=== PATIENT | female | born 1975 | race Caucasian/White ===

== ENCOUNTER → 2017-02-27 | Outpatient (CLI) | payer OTHER, SELFPAY | PROVIDERS: Visit Provider Nurse Practitioner Family | DX: Z79.899 Other long term (current) drug therapy (principal) | CPT/HCPCS: 80305 ==

== ENCOUNTER → 2017-08-15 13:45 | Outpatient (CLI) | payer OTHER, SELFPAY ==
[2017-08-15 19:40] LABS: Amphetamine/Metha Screen,Urine Negative ng/mL (<1000); Barbiturates Screen,Urine Negative ng/mL (<200); Benzodiazepines Screen,Urine Negative ng/mL (200); Cannabinoid Screen,Urine Positive ng/mL (<50); Cocaine Screen,Urine Positive ng/g (<300); Methadone Screen,Urine Negative ng/mL (<300); Opiate Screen,Urine Negative ng/mL (<300); Phencyclidine Screen,Urine Negative ng/mL (<25)
== END ==
PROVIDERS: Visit Provider Nurse Practitioner Family
DX: Z79.899 Other long term (current) drug therapy (principal)
CPT/HCPCS: 80305

== ENCOUNTER → 2019-03-22 16:58 | Outpatient (CLI) | payer OTHER, SELFPAY ==
[2019-03-22 17:10] LABS: Basophils % 0.4 % (0.1-2.0); Eosinophils # 0.1 K/mm3 (0.0-0.4); Eosinophils % 1.8 % (0.1-12.0); Hemoglobin 13.8 g/dL (12.2-16.2); Lymphocytes # 2.4 K/mm3 (0.7-4.5); Lymphocytes % 35.9 % (10-50); Mean Corpuscular HGB Conc 32.8 g/dL (31.8-35.4); Mean Corpuscular Volume 94.6 fl (81-99); Mean Platelet Volume 9.5 fl (7.4-10.4); Monocytes # 0.3 K/mm3 (0.1-1.0); Monocytes % 4.9 % (1.7-9.3); Neutrophils # 3.8 K/mm3 (1.8-7.8); Neutrophils % 56.9 % (37.0-80.0); Platelet Count 324 K/mm3 (142-424); Red Blood Count 4.44 M/mm3 (4.20-5.40); Red Cell Distribution Width 12.4 % (11.5-17.5); White Blood Count 6.6 K/mm3 (4.8-10.8)
[2019-03-22 19:41] LABS: Alanine Aminotransferase 58 U/L (12-78); Alkaline Phosphatase 70 U/L (46-116); Anion Gap 13.9 mEq/L (5-15); Aspartate Amino Transferase 36 U/L (15-37); Bilirubin,Total 0.3 mg/dL (0.2-1.0); Blood Urea Nitrogen 7 mg/dL (7-18); Calcium 9.3 mg/dL (8.5-10.1); Carbon Dioxide 28 mmol/L (21.0-32.0); Chloride 102 mmol/L (98-107); Chol/HDL Ratio 2.8 (1-3.5); Cholesterol 189 mg/dL (140-200); Creatinine,Serum 0.76 mg/dL (0.55-1.02); Estimated Glomerular Filt Rate 83 ml/min (>60); Free T4 (Free Thyroxine) 1.19 ng/dl (0.76-1.46); GFR (African American) 101 ML/MIN (>60); Globulin 4.1 gm/dl (1.3-3.2); Glucose 97 mg/dL (74-106); HDL Cholesterol 67 mg/dL (29-89); LDL Cholesterol 107 mg/dL (0-130); Potassium 4.9 mmoL/L (3.5-5.1); Sodium 139 mmol/L (136-145); Thyroid Stimulating Hormone 1.21 uIU/ml (0.358-3.740); Total Protein,Serum 8.1 gm/dL (6.4-8.2); Triglycerides 77 mg/dL (30-200); VLDL Cholesterol 15 mg/dL (0-40)
[2019-03-25 12:50] LABS: Hep A Ab, IgM N; Hepatitis B Core Antibody IgM N; Hepatitis B Surface Antigen N; Hepatitis C Antibody >11.0
== END ==
PROVIDERS: Visit Provider Emergency Medicine
DX: R53.83 Other fatigue (principal); G62.9 Polyneuropathy, unspecified; E66.3 Overweight; Z72.0 Tobacco use
CPT/HCPCS: 80053; 80061; 80074; 84439; 84443; 85025

== ENCOUNTER → 2020-04-14 13:47 | Outpatient (CLI) | payer OTHER, SELFPAY ==
[2020-04-14 14:09] LABS: Basophils % 0.6 % (0.1-2.0); Eosinophils # 0.2 K/mm3 (0.0-0.4); Eosinophils % 2.8 % (0.1-12.0); Hematocrit 46.1 % (37.0-47.0); Hemoglobin 14.5 g/dL (12.2-16.2); Lymphocytes # 2.3 K/mm3 (0.7-4.5); Lymphocytes % 32.3 % (10-50); Mean Corpuscular HGB Conc 31.5 g/dL (31.8-35.4); Mean Corpuscular Hemoglobin 30.3 pg (27.0-31.2); Mean Corpuscular Volume 96.3 fl (81-99); Monocytes # 0.4 K/mm3 (0.1-1.0); Neutrophils # 4.2 K/mm3 (1.8-7.8); Neutrophils % 58.4 % (37.0-80.0); Platelet Count 389 K/mm3 (142-424); Red Blood Count 4.79 M/mm3 (4.20-5.40); Red Cell Distribution Width 12.3 % (11.5-17.5); White Blood Count 7.2 K/mm3 (4.8-10.8)
[2020-04-14 14:16] LABS: Alanine Aminotransferase 77 U/L (12-78); Albumin Level 4.6 g/dl (3.5-5.0); Albumin/Globulin Ratio 1.2 (1.1-1.8); Alkaline Phosphatase 92 U/L (38-126); Anion Gap 11.2 mEq/L (5-15); Aspartate Amino Transferase 62 U/L (14-36); Bilirubin,Total 0.4 mg/dl (0.2-1.3); Blood Urea Nitrogen 8 mg/dl (7-17); Calcium 9.9 mg/dl (8.4-10.2); Carbon Dioxide 30 mmol/L (22.0-30.0); Chloride 104 mmol/L (98-107); Cholesterol 236 mg/dl (140-200); Estimated Glomerular Filt Rate 91 ml/min (>60); GFR (African American) 110 ML/MIN (>60); Glucose 112 mg/dl (74-100); HDL Cholesterol 78 mg/dl (40-60); Potassium 4.2 mmoL/L (3.5-5.1); Sodium 141 mmol/L (136-145); Total Protein,Serum 8.6 g/dl (6.3-8.2); Triglycerides 75 mg/dl (30-150); VLDL Cholesterol 15 mg/dL (0-40)
== END ==
PROVIDERS: Visit Provider Family Medicine
DX: G62.9 Polyneuropathy, unspecified (principal); K21.9 Gastro-esophageal reflux disease without esophagitis; E66.9 Obesity, unspecified; Z68.30 Body mass index [BMI] 30.0-30.9, adult; Z72.0 Tobacco use; Z20.5 Contact with and (suspected) exposure to viral hepatitis; Z80.3 Family history of malignant neoplasm of breast
CPT/HCPCS: 80053; 80061; 85025

== ENCOUNTER → 2020-12-25 18:58 | Outpatient (CLI) | payer OTHER, SELFPAY ==
[2020-12-25 20:12] LABS: Basophils # 0.1 K/mm3 (0-0.2); Basophils % 0.4 % (0.1-2.0); Eosinophils # 0.3 K/mm3 (0.0-0.4); Eosinophils % 2.2 % (0.1-12.0); Hematocrit 44.2 % (37.0-47.0); Hemoglobin 13.8 g/dL (12.2-16.2); Lymphocytes # 3.8 K/mm3 (0.7-4.5); Lymphocytes % 33.7 % (10-50); Mean Corpuscular HGB Conc 31.1 g/dL (31.8-35.4); Mean Corpuscular Hemoglobin 31.1 pg (27.0-31.2); Mean Corpuscular Volume 99.8 fl (81-99); Mean Platelet Volume 9.9 fl (7.4-10.4); Monocytes # 0.5 K/mm3 (0.1-1.0); Neutrophils # 6.8 K/mm3 (1.8-7.8); Neutrophils % 59.7 % (37.0-80.0); Platelet Count 457 K/mm3 (142-424); Red Blood Count 4.43 M/mm3 (4.20-5.40); Red Cell Distribution Width 12.8 % (11.5-17.5); White Blood Count 11.3 K/mm3 (4.8-10.8)
[2020-12-25 20:31] LABS: Alanine Aminotransferase 64 U/L (12-78); Alkaline Phosphatase 94 U/L (38-126); Anion Gap 11.7 mEq/L (5-15); Aspartate Amino Transferase 55 U/L (14-36); Bilirubin,Total 0.2 mg/dl (0.2-1.3); Blood Urea Nitrogen 8 mg/dl (7-17); Calcium 9.2 mg/dl (8.4-10.2); Carbon Dioxide 29 mmol/L (22.0-30.0); Chloride 103 mmol/L (98-107); Cholesterol 206 mg/dl (140-200); Estimated Glomerular Filt Rate 134 ml/min (>60); GFR (African American) 162 ML/MIN (>60); Globulin 3.9 g/dL (1.3-3.2); Glucose 89 mg/dl (74-100); HDL Cholesterol 69 mg/dl (40-60); Potassium 4.7 mmoL/L (3.5-5.1); Sodium 139 mmol/L (136-145); Total Protein,Serum 7.9 g/dl (6.3-8.2); Triglycerides 105 mg/dl (30-150); VLDL Cholesterol 21 mg/dL (0-40)
[2020-12-25 20:35] LABS: Amphetamine/Metha Screen,Urine Negative ng/ml (<1000)
[2020-12-25 20:36] LABS: Barbiturates Screen,Urine Negative ng/ml (<200); Benzodiazepines Screen,Urine Negative ng/ml (<200)
[2020-12-25 20:37] LABS: Cannabinoid Screen,Urine Negative ng/ml (<50); Cocaine Screen,Urine Negative ng/ml (<300)
[2020-12-25 20:38] LABS: Methadone Screen,Urine Negative ng/ml (<300)
[2020-12-25 20:39] LABS: Opiate Screen,Urine Negative ng/ml (<300); Phencyclidine Screen,Urine Negative ng/ml (<25)
[2020-12-25 20:42] LABS: Direct LDL Cholesterol 104.91 mg/dL (100-129)
[2020-12-25 20:47] LABS: Free T4 (Free Thyroxine) 1.25 ng/dl (0.78-2.19)
[2020-12-25 21:02] LABS: Thyroid Stimulating Hormone 2.06 uIU/mL (0.465-4.68)
[2020-12-25 22:23] LABS: 25-OH Vitamin D, Total 23.1 ng/mL (30-100)
== END ==
PROVIDERS: Visit Provider Emergency Medicine
DX: E66.9 Obesity, unspecified (principal); E55.9 Vitamin D deficiency, unspecified; Z79.899 Other long term (current) drug therapy
CPT/HCPCS: 80053; 80061; 80305; 82306; 84439; 84443; 85025

== ENCOUNTER → 2021-06-25 08:41 | Outpatient (CLI) | payer OTHER, SELFPAY ==
[2021-06-25 15:09] LABS: Amphetamine/Metha Screen,Urine Negative ng/ml (<1000)
[2021-06-25 15:10] LABS: Barbiturates Screen,Urine Negative ng/ml (<200); Benzodiazepines Screen,Urine Negative ng/ml (<200)
[2021-06-25 15:11] LABS: Cannabinoid Screen,Urine Negative ng/ml (<50)
[2021-06-25 15:12] LABS: Cocaine Screen,Urine Negative ng/ml (<300); Methadone Screen,Urine Negative ng/ml (<300)
[2021-06-25 15:14] LABS: Opiate Screen,Urine Negative ng/ml (<300); Phencyclidine Screen,Urine Negative ng/ml (<25)
== END ==
PROVIDERS: Visit Provider Emergency Medicine
DX: G89.29 Other chronic pain (principal)
CPT/HCPCS: 80305

== ENCOUNTER → 2021-12-25 16:06 | Outpatient (CLI) | payer OTHER, SELFPAY ==
--- NOTE | 2021-12-25 16:07 | MM_ITS ---
PROCEDURE INFORMATION: Exam: Bilateral Screening 3D Mammography Exam date and time: 12/25/2021 4:02 PM Age: 46 years old Clinical indication: Baseline. No family history of breast cancer. TECHNIQUE: Imaging protocol: Bilateral Screening tomosynthesis and 2D mammography including computer-aided detection (CAD) when performed. COMPARISON: No relevant prior studies available. FINDINGS: MAMMOGRAPHY: Breast composition: There are scattered areas of fibroglandular density. Mass: None. Architectural distortion: None. Calcifications: No suspicious calcifications. Asymmetric density: None. Skin thickening: None. Axillary adenopathy: None. IMPRESSION: No mammographic evidence of malignancy. Annual screening is recommended unless otherwise clinically indicated. ASSESSMENT: BI-RADS Category 1: Negative
== END ==
PROVIDERS: PCP Emergency Medicine; Visit Provider Emergency Medicine
DX: Z12.31 Encounter for screening mammogram for malignant neoplasm of breast (principal)
CPT/HCPCS: 77063; 77067

== ENCOUNTER → 2022-02-13 16:45 | Outpatient (CLI) | payer OTHER, SELFPAY ==
[2022-02-13 17:56] LABS: Adenovirus,PCR Not Detected (NotDetected); Bordetella Pertussis Not Detected (NotDetected); Chlamydophila Pneumoniae, PCR Not Detected (NotDetected); Coronavirus 19, PCR Not Detected (NotDetected); Coronavirus 229E Not Detected (NotDetected); Coronavirus NL63 Not Detected (NotDetected); Coronavirus OC43 Not Detected (NotDetected); Coronovirus HKU1,PCR Not Detected (NotDetected); Human Metapneumovirus Not Detected (NotDetected); Influenza A, PCR Not Detected (NotDetected); Influenza AH1, 2009 Not Detected (NotDetected); Influenza AH1, PCR Not Detected (NotDetected); Influenza AH3,PCR Not Detected (NotDetected); Influenza B, PCR Not Detected (NotDetected); Mycoplasma Pneumoniae, PCR Not Detected (NotDetected); Parainfluenza 1, PCR Not Detected (NotDetected); Parainfluenza 2, PCR Not Detected (NotDetected); Parainfluenza 3, PCR Not Detected (NotDetected); Parainfluenza 4, PCR Not Detected (NotDetected); Respiratory Syncytial Virus Not Detected (NotDetected); Rhinovirus/Enterovirus Not Detected (NotDetected)
== END ==
PROVIDERS: PCP Nurse Practitioner Family; Visit Provider Nurse Practitioner Family
DX: J02.9 Acute pharyngitis, unspecified (principal); R05.9 Cough, unspecified; R51.9 Headache, unspecified; R19.7 Diarrhea, unspecified
CPT/HCPCS: 87581; 87632; 87798; C9803; U0003; U0005

== ENCOUNTER → 2022-09-04 13:30 | Outpatient (CLI) | payer OTHER, SELFPAY ==
[2022-09-04 15:58] LABS: Basophils # 0.1 K/mm3 (0-0.2); Basophils % 0.6 % (0.1-2.0); Eosinophils # 0.1 K/mm3 (0.0-0.4); Eosinophils % 1.6 % (0.1-12.0); Hematocrit 45.4 % (37.0-47.0); Hemoglobin 14.2 g/dL (12.2-16.2); Lymphocytes # 3.4 K/mm3 (0.7-4.5); Lymphocytes % 41.7 % (10-50); Mean Corpuscular HGB Conc 31.2 g/dL (31.8-35.4); Mean Corpuscular Hemoglobin 29.5 pg (27.0-31.2); Mean Corpuscular Volume 94.5 fl (81-99); Mean Platelet Volume 10.1 fl (7.4-10.4); Monocytes # 0.6 K/mm3 (0.1-1.0); Monocytes % 7.1 % (1.7-9.3); Platelet Count 406 K/mm3 (142-424); Red Blood Count 4.81 M/mm3 (4.20-5.40); Red Cell Distribution Width 12.9 % (11.5-17.5); White Blood Count 8.2 K/mm3 (4.8-10.8)
[2022-09-04 16:17] LABS: Alanine Aminotransferase 77 U/L (12-78); Albumin Level 4.2 g/dl (3.5-5.0); Albumin/Globulin Ratio 1.1 (1.1-1.8); Alkaline Phosphatase 90 U/L (38-126); Anion Gap 15.1 mEq/L (5-15); Aspartate Amino Transferase 70 U/L (14-36); Bilirubin,Total 0.3 mg/dl (0.2-1.3); Blood Urea Nitrogen 7 mg/dl (7-17); Calcium 8.8 mg/dl (8.4-10.2); Carbon Dioxide 27 mmol/L (22.0-30.0); Chloride 103 mmol/L (98-107); Chol/HDL Ratio 3.1 (1-3.5); Cholesterol 194 mg/dl (140-200); Estimated Glomerular Filt Rate 108 ml/min (>60); GFR (African American) 130 ML/MIN (>60); Globulin 3.8 g/dL (1.3-3.2); Glucose 62 mg/dl (74-100); HDL Cholesterol 63 mg/dl (40-60); Potassium 5.1 mmoL/L (3.5-5.1); Sodium 140 mmol/L (136-145); Triglycerides 90 mg/dl (30-150); VLDL Cholesterol 18 mg/dL (0-40)
[2022-09-04 16:28] LABS: Direct LDL Cholesterol 98.51 mg/dL (100-129)
[2022-09-04 16:34] LABS: Free T4 (Free Thyroxine) 1.16 ng/dl (0.78-2.19)
[2022-09-04 16:37] LABS: 25-OH Vitamin D, Total 20.6 ng/mL (30-100)
[2022-09-04 16:48] LABS: Thyroid Stimulating Hormone 1.79 uIU/mL (0.465-4.68)
== END ==
PROVIDERS: PCP Emergency Medicine; Visit Provider Emergency Medicine
DX: E66.9 Obesity, unspecified (principal); E55.9 Vitamin D deficiency, unspecified; Z68.35 Body mass index [BMI] 35.0-35.9, adult
CPT/HCPCS: 80053; 80061; 82306; 84439; 84443; 85025

== ENCOUNTER → 2022-11-27 01:10 | Outpatient (CLI) | payer BC, SELFPAY ==
[2022-11-28 00:03] LABS: Amphetamine/Metha Screen,Urine Negative ng/ml (<1000)
[2022-11-28 00:04] LABS: Barbiturates Screen,Urine Negative ng/ml (<200)
[2022-11-28 00:05] LABS: Benzodiazepines Screen,Urine Negative ng/ml (<200); Cannabinoid Screen,Urine Negative ng/ml (<50)
[2022-11-28 00:08] LABS: Cocaine Screen,Urine Negative ng/ml (<300); Methadone Screen,Urine Negative ng/ml (<300); Opiate Screen,Urine Negative ng/ml (<300); Phencyclidine Screen,Urine Negative ng/ml (<25)
== END ==
PROVIDERS: PCP Emergency Medicine; Visit Provider Emergency Medicine
DX: Z79.899 Other long term (current) drug therapy (principal)
CPT/HCPCS: 80305

== ENCOUNTER → 2023-02-21 16:04 | Outpatient (CLI) | payer OTHER, SELFPAY ==
[2023-02-21 17:15] LABS: Barbiturates Screen,Urine Negative ng/ml (<200)
[2023-02-21 17:16] LABS: Amphetamine/Metha Screen,Urine Negative ng/ml (<1000)
[2023-02-21 17:18] LABS: Benzodiazepines Screen,Urine Negative ng/ml (<200); Cocaine Screen,Urine Negative ng/ml (<300)
[2023-02-21 17:20] LABS: Methadone Screen,Urine Negative ng/ml (<300); Phencyclidine Screen,Urine Negative ng/ml (<25)
[2023-02-21 17:21] LABS: Opiate Screen,Urine Negative ng/ml (<300)
[2023-02-21 17:28] LABS: Cannabinoid Screen,Urine Negative ng/ml (<50)
== END ==
PROVIDERS: PCP Nurse Practitioner Family; Visit Provider Nurse Practitioner Family
DX: G62.9 Polyneuropathy, unspecified (principal)
CPT/HCPCS: 80305

== ENCOUNTER 2023-03-21 19:03 | Outpatient (CLI) | payer OTHER, SELFPAY ==
[2023-03-21 21:24] LABS: Amphetamine/Metha Screen,Urine Negative ng/ml (<1000); Barbiturates Screen,Urine Negative ng/ml (<200)
[2023-03-21 21:25] LABS: Benzodiazepines Screen,Urine Negative ng/ml (<200); Cannabinoid Screen,Urine Negative ng/ml (<50)
[2023-03-21 21:26] LABS: Cocaine Screen,Urine Negative ng/ml (<300)
[2023-03-21 21:27] LABS: Methadone Screen,Urine Negative ng/ml (<300); Opiate Screen,Urine Negative ng/ml (<300)
[2023-03-21 21:28] LABS: Phencyclidine Screen,Urine Negative ng/ml (<25)
[2023-03-29 08:35] LABS: Gabapentin,Urine >800.0 ug/mL (.)
== END 2023-03-21 23:59 ==
PROVIDERS: PCP Nurse Practitioner Family; Visit Provider Nurse Practitioner Family
DX: G62.9 Polyneuropathy, unspecified (principal)
CPT/HCPCS: 80307

== ENCOUNTER 2023-03-24 08:27 | Outpatient (CLI) | payer BC, SELFPAY | END 2023-03-24 23:59 | LOC: LAB.DROPOF 03-26 08:28 | PROVIDERS: PCP Nurse Practitioner Family; Visit Provider Nurse Practitioner Family | DX: Z79.899 Other long term (current) drug therapy (principal); G62.9 Polyneuropathy, unspecified | CPT/HCPCS: 80307 ==

== ENCOUNTER 2023-12-06 10:58 | Emergency (ER) | payer BC, SELFPAY ==
[2023-12-06] VITALS (8 sets, daily range): BP systolic 136–180; BP diastolic 79–99; PULSE 67–90; RESP 13–18; TEMP 36.7–36.9; O2SAT 90–96; BMI 33.3
--- NOTE | 2023-12-06 11:08 | PC.NURSE ---
DR MURPHY AT BEDSIDE
--- NOTE | 2023-12-06 11:22 | ECG_ITS ---
APPROVED REPORT Exam: Resting ECG HR:73 bpm ECG Measurements Heart Rate 73 AXES [place] 136 P 41 QRSd 85 QRS 53 QT 361 T 33 QTc 387 Conclusion Sinus rhythm Electronically signed by : JJ MURPHY, 12/07/2023 19:30:35
[2023-12-06] MEDS: ACETAMINOPHEN 1,000MG/100ML VIAL 1000 MG IV (11:33)
[2023-12-06] MEDS: KETOROLAC 30MG/ML VIAL 15 MG IV (11:37)
--- NOTE | 2023-12-06 11:39 | ED_ITS ---
Discharge Plan Disposition Patient Disposition: Home, Self-Care Prescriptions Prescriptions: No Action buprenorphine-naloxone 8-2 mg tablet, sublingual 1 tab sublingual DAILY omeprazole 20 mg capsule,delayed release(DR/EC) 20 mg PO DAILY Qty: 90 3RF naproxen 500 mg tablet 500 mg PO BID Qty: 30 0RF gabapentin 800 mg tablet 800 mg PO TID Qty: 90 2RF ergocalciferol (vitamin D2) [Vitamin D2] 1,250 mcg (50,000 unit) capsule 1,250 mcg PO WEEKLY Qty: 5 2RF Referrals Follow up/Referrals: Agustin Middleton MD [Staff Physician] - See instructions Juventino Che APRN [Primary Care Provider] - See instructions Activity Restrictions/Add. Instructions Additional Instructions/Restrictions: Talk to your family doctor about the small adrenal nodules (right adrenal nodule 1.7 x 1.2 cm, left adrenal nodule 1.2 x 2.2 cm). Likely benign, but should have follow-up. Dr. Middleton (surgeon) will be the one that will help you with your gallbladder. Contact our office to schedule follow-up. Call your family doctor to establish care for this visit to the emergency department and schedule follow-up within 48 hours to ensure improvement. If you have any worsening of your condition or any other concerning signs or symptoms, return to the emergency department or your primary care doctor for further evaluation. Clinical Impressions Clinical Impression: Cholelithiasis without cholecystitis, Symptomatic cholelithiasis Instructions Patient Instructions: DI for Low Back Pain Print Language Print Language: Croatian Discharge ED Provider: Rustam Ortiz General Adult HPI General Chief complaint: Back Pain/Injury Stated complaint: stabbing back pain abd pain Time Seen by Provider: 12/06/23 11:05 Mode of Arrival: Wheelchair Source of Information: Patient Limitations: No Limitations Description of Symptoms (Recalled from ER Triage Doc. by RN): PT REPORTS UPPER BACK PAIN, MID BACK AND ON RIGHT SIDE. HAS BEEN ONGOING FOR 1 MONTH. NO INJURY. PAIN HAS INCREASED IN THE LAST WEEK. WORSE THIS AM AOUND 0200 History of Present Illness HPI narrative: Please note that above description of symptoms, in this electronic medical record under categorization of recalled from ER triage doctor by RN are reflective of an initial nursing assessment, however, is not reflective of my full history and physical exam that was personally taken and clarified. Consequentially, this preceding description of symptoms, which may include the patient's categorized chief complaint in the EMR, do not reflect my personal clinical impression, and the ultimate description of history of present illness and patient stated complaints should be deferred to this section of the note. Unless stated otherwise or congruent with this section of the note, additional signs, symptoms, or incongruence should be interpreted as inaccurate with my clinical impression. Related Data Home Medications ?Medication ?Instructions ?Recorded ?Confirmed buprenorphine 8 mg-naloxone 2 mg 1 tab sublingual DAILY 06/07/22 11/05/23 sublingual tablet Previous Rx's ?Medication ?Instructions ?Recorded ergocalciferol (vitamin D2) 1,250 1,250 mcg PO WEEKLY #5 caps 09/12/22 mcg (50,000 unit) capsule (Vitamin D2) naproxen 500 mg tablet 500 mg PO BID #30 tabs 03/21/23 omeprazole 20 mg capsule,delayed 20 mg PO DAILY #90 caps 05/14/23 release gabapentin 800 mg tablet 800 mg PO TID #90 tabs 11/05/23 Allergies Allergy/AdvReac Type Severity Reaction Status Date / Time No Known Allergies Allergy Verified 11/05/23 14:38 [facility] Disclaimer: The information contained in this section may have been updated after the patient was seen, as this information can be updated by other users. Surgical History H/O section Family History Other Cancer Diabetes Heart attack Hypertension Social History Smoking Status: Current every day smoker tobacco type: cigarettes packs per day: 2 alcohol intake: never substance use type: former substance user current occupational status: disabled Travel in the last 8 weeks: None household members: spouse, family and children housing: house ROS Obtained: Yes All systems reviewed & no additional complaints except as documented Physical Exam General General appearance: alert and in distress (Secondary to pain, tearful) Head Head exam: atraumatic and normocephalic Eye Eye exam: Present normal appearance, PERRL and EOMI Neck Neck exam: Present normal inspection, full ROM and trachea midline Respiratory Respiratory exam: Present normal lung sounds bilaterally; Absent respiratory distress, wheezes, stridor, accessory muscle use or prolonged expiratory phase Cardiovascular Cardiovascular exam: Present regular rate, normal rhythm and other (Pulses equal symmetric in upper and lower extremities) Abdominal Exam Abdominal exam: Present soft, tenderness, guarding and Tiwari's sign; Absent distention, rebound, rigidity, Rovsing's sign, tenderness at McBurney's Point or pulsatile mass Abdominal tenderness: Present RUQ and moderate Extremities Exam Extremities exam: Absent edema Neurological Exam Neurological exam: Present alert, oriented X3, CN II-XII intact and normal gait; Absent motor sensory deficit Skin Skin exam: Present warm and dry; Absent diaphoresis or erythema Medical Decision Making Medical Records Medical records reviewed: Yes I reviewed the patient's medical records. Screening: Per USPSTF and CDC recommendations, given the prevalence of disease in our region, it is our hospital?s policy to screen for HIV and viral Hepatitis for all patients aged 18 and over and those with ongoing risk factors. Tyson Inquiry Pt receiving controlled substance: No Tyson was queried for this patient: No Vital Signs: 12/06/23 10:59 12/06/23 11:05 12/06/23 11:52 Temperature 98.4 F Temperature Source Oral Pulse Rate 90 81 Pulse Rate [Radial] 89 Respiratory Rate 18 18 18 Blood Pressure 180/99 H 136/97 H Blood Pressure [Left Arm] 180/99 H Blood Pressure Mean 126 117 Blood Pressure Mean [Left Arm] 126 Blood Pressure Source [Left Arm] Automatic Cuff Blood Pressure Position [Left Arm] Sitting 02 Sat by Pulse Oximetry 95 95 96 Oxygen Delivery Method Room Air 12/06/23 12:00 12/06/23 12:30 12/06/23 13:00 Temperature Temperature Source Pulse Rate 78 69 69 Pulse Rate [Radial] Respiratory Rate 18 18 Blood Pressure 151/94 H 151/79 H 153/80 H Blood Pressure [Left Arm] Blood Pressure Mean 113 112 Blood Pressure Mean [Left Arm] Blood Pressure Source [Left Arm] Blood Pressure Position [Left Arm] 02 Sat by Pulse Oximetry 93 L 95 95 Oxygen Delivery Method Room Air 12/06/23 13:30 Temperature Temperature Source Pulse Rate 67 Pulse Rate [Radial] Respiratory Rate Blood Pressure 147/94 H Blood Pressure [Left Arm] Blood Pressure Mean Blood Pressure Mean [Left Arm] Blood Pressure Source [Left Arm] Blood Pressure Position [Left Arm] 02 Sat by Pulse Oximetry 90 L Oxygen Delivery Method Room Air Lab Data Lab Results 12/06/23 11:03: Urine Color Yellow, Urine Appearance Cloudy, Urine pH 6.5, Ur Specific [place] 1.025, Urine Protein Negative, Urine Glucose (UA) Negative, Urine Ketones Negative, Urine Blood 3+ A, Urine Nitrate Negative, Urine Bilirubin 1+ A, Urine Urobilinogen 1.0, Ur Leukocyte Esterase Negative, Urine RBC 20-50, Urine WBC 3-5, Ur Squamous Epith Cells 3-5, Urine Bacteria Trace 12/06/23 11:35: WBC 9.8, RBC 5.18, Hgb 16.6 H, Hct 53.7 H, MCV 103.7 H, MCH 32.1 H, MCHC 30.9 L, RDW 14.3, Plt Count 334, MPV 8.3, Neut % (Auto) 72.0, Lymph % (Auto) 20.6, [place] % (Auto) 5.1, Eos % (Auto) 1.8, Baso % (Auto) 0.5, Neut # (Auto) 7.1, Lymph # (Auto) 2.0, [place] # (Auto) 0.5, Eos # (Auto) 0.2, Baso # (Auto) 0.1, Sodium 139, Potassium 4.3, Chloride 106, Carbon Dioxide 33 H, Anion Gap 4.3 L, BUN 6 L, Creatinine 0.60, Estimated Creat Clear 166, Estimated GFR 107, Est GFR ( Amer) 130, Glucose 112 H, Calcium 9.9, Total Bilirubin 0.5, AST 77 H, ALT 82 H, Alkaline Phosphatase 97, Troponin I < 0.01, Total Protein 8.5 H, Albumin 4.2, Globulin 4.3 H, Albumin/Globulin Ratio 1.0 L, Lipase 108, HCG, Quant < 2, HIV 1&2 Antibody Rapid Nonreactive 12/06/23 11:35 12/06/23 11:35 Orders (Tests/Meds): ED MEDICATIONS Generic Name Dose Route Start Last Admin Trade Name Freq PRN Reason Stop Dose Admin Sodium Chloride 10 ml 12/06/23 12:37 12/06/23 12:38 Sodium Chloride 0.9% 10ml Syr (Rad Only) IV 01/05/24 12:36 10 ml NEEDED PRN Administration Maintain IV Site Discontinued Medications Generic Name Dose Route Start Last Admin Trade Name Freq PRN Reason Stop Dose Admin Acetaminophen 1,000 mg 12/06/23 11:15 12/06/23 11:33 Acetaminophen 1,000mg/100ml Vial IV 12/06/23 11:16 1,000 mg ONCE ONE Administration Iopamidol 75 ml 12/06/23 12:37 12/06/23 12:38 Iopamidol-370 (76%);100ml Bottle IV 12/06/23 12:38 75 ml ONCE ONE Administration Ketorolac Tromethamine 15 mg 12/06/23 11:15 12/06/23 11:37 Ketorolac 30mg/Ml Vial IV 12/06/23 11:16 15 mg ONCE ONE Administration ORDERS Category Date Time Status CT abdomen pelvis w con Stat Cat Scan 12/06/23 12:15 Completed POCUS Point of Care (ER Only) Stat Exams 12/06/23 11:12 Completed CBC w/Auto Diff [Complete Blood Count Auto Diff] Stat Lab 12/06/23 11:35 Completed CMP [Comprehensive Metabolic Panel] Stat Lab 12/06/23 11:35 Completed HCG,Quantitative Stat Lab 12/06/23 11:35 Completed HIV (1&2) Antibody Rapid Stat Lab 12/06/23 11:35 Completed Hep C Ab with Reflex to RNA Stat Lab 12/06/23 11:35 Received Lactic Acid Stat Lab 12/06/23 11:12 Ordered Lipase Stat Lab 12/06/23 11:35 Completed Trop I [Troponin I] Stat Lab 12/06/23 11:35 Completed Troponin I Q3H Lab 12/06/23 14:15 Ordered Troponin I Q3H Lab 12/06/23 17:15 Ordered UA [Urinalysis and Microscopic] Stat Lab 12/06/23 11:03 Completed Medical Decision Narrative: 48-year-old female history of IV drug abuse on Suboxone, section presenting with abdominal/back pain. Patient states that she has had 4 of these episodes on and off for the last month. This episode is constant, started this morning around 2 AM when she got up to urinate. Right upper quadrant, radiates to the right side of her back. Nausea without vomiting. Last bowel movement was yesterday, 12/04, normal for her without blood or mucus. No urinary symptoms including blood or burning. Nothing in particular makes it better, lying on her back makes it worse. It is sharp, stabbing. Not associated with food intake. History was obtained via conversation with family and patient. On arrival, patient hemodynamically stable, alert, oriented x4, appropriate, GCS 15, moving all extremities spontaneously, pupils equal and reactive to light. Full physical exam performed and significant for tearful appearing woman who appears to be in mild distress secondary to pain. No flank tenderness, no overlying skin changes on the back or flank. Abdomen is soft, moderately tender in right upper quadrant with positive Tiwari sign. No overlying abdominal changes. Bowel sounds present.. Differential includes PUD, gastritis, enteritis, gastroenteritis, pancreatitis, SBO, colitis, diverticulitis, nephrolithiasis, UTI, , cholecystitis, choledocholithiasis, appendicitis, hepatitis, torsion, aortic pathology, mesenteric ischemia among others. Patient placed on continuous cardiac monitoring and continuous pulse ox with initial blood pressure 180/90, heart rate 89, saturation 95% on room air. Independent interpretation of EKG shows sinus rhythm 73 beats a minute no ST or T wave changes concerning for acute ischemia. NM 136, QRS 85, QTc 387. Wandering baseline, but no obvious ischemic change. Normal axis. Patient was given Toradol and acetaminophen for symptomatic management and correction of underlying abnormalities. Workup independently interpreted and significant for nonactionable CBC or chemistry. Kidney function normal. Troponin negative. Mildly elevated LFTs. hCG negative, urinalysis unconcerning. On independent interpretation of imaging, no acute intra-abdominal abnormality on CT of the abdomen and pelvis. See radiology read for full review of final results. Bedside [id number] ultrasound was performed and patient has numerous gallstones, no acute cholecystitis. Given workup, physical exam, history and symptoms, this most likely represents symptomatic cholelithiasis without cholecystitis. Because patient at baseline without signs or symptoms of clinical decompensation, deemed appropriate for discharge. Results were relayed to patient who voiced understanding and were agreeable to outpatient management and follow up. I discussed my clinical impression with patient and answered all questions. At this time, the evidence for any other entities in the differential is insufficient to warrant any further testing or ED observation. This was explained as well. Advisory was given that persistent or worsening symptoms require further evaluation. I confirmed the understanding of this discussion. Shelving Supervisor disclaimer Much of this encounter note is an electronic enrollment management manager spoken language to printed text. Electronic enrollment management manager of the spoken language may permit errors. Although I have reviewed the note, some errors may still exist. Procedures Limited Ultrasound Indication:: Limited RUQ ultrasound Indication: Abdominal pain and right flank pain Identified structures: -Gallbladder -Gallbladder wall -Common bile duct -Liver Findings: Sonographic Tiwari sign: Absent Gallstones: Present Sludge: Absent Pericholecystic fluid: Absent Maximal GB wall thickness (mm) (normal is </= 3mm): Normal Common bile duct width (mm) (normal is </= 6mm): Normal Gallbladder width (cm) (normal is < 4cm): Normal Gallbladder length (cm) (normal is < 10cm): Normal Impression: Cholelithiasis without secondary findings of cholecystitis Images were saved to permanent archive The study was technically adequate CPT 45383-41 This study was performed by ne, and I personally interpreted all images/videos. Based on my clinical judgement, these images were adequate and did not necessitate further imaging. Views:: Ultrasound-guided line placement Indication: -Difficult access, history of IVDU Identified structures: -Right cephalic vein Location/access site: -Right cephalic Vessel patency: -Patent Direct visualization? -Yes Impression: 60 mm of 20-gauge catheter in right cephalic vein Images were saved to permanent archive The study was technically adequate CPT Codes: Venipuncture: 29705-55 Age <3 yo: 65528-01 Age >3yo: 05103-12 Central line <5 yo: 43731-22 Central line >5 yo: 40306-53 This study was performed by ne, and I personally interpreted all images/videos. Based on my clinical judgement, these images were adequate and did not necessitate further imaging Critical Care Critical Care Time Critical Care Time: No
[2023-12-06 11:52] LABS: Albumin Level 4.2 g/dl (3.5-5.0); Chloride 106 mmol/L (98-107); Potassium 4.3 mmoL/L (3.5-5.1); Sodium 139 mmol/L (136-145)
[2023-12-06 11:53] LABS: Basophils # 0.1 K/mm3 (0-0.2); Basophils % 0.5 % (0.1-2.0); Eosinophils # 0.2 K/mm3 (0.0-0.4); Eosinophils % 1.8 % (0.1-12.0); Hematocrit 53.7 % (37.0-47.0); Hemoglobin 16.6 g/dL (12.2-16.2); Lymphocytes % 20.6 % (10-50); Mean Corpuscular HGB Conc 30.9 g/dL (31.8-35.4); Mean Corpuscular Hemoglobin 32.1 pg (27.0-31.2); Mean Corpuscular Volume 103.7 fl (81-99); Mean Platelet Volume 8.3 fl (7.4-10.4); Monocytes # 0.5 K/mm3 (0.1-1.0); Monocytes % 5.1 % (1.7-9.3); Neutrophils # 7.1 K/mm3 (1.8-7.8); Platelet Count 334 K/mm3 (142-424); Red Blood Count 5.18 M/mm3 (4.20-5.40); Red Cell Distribution Width 14.3 % (11.5-17.5); White Blood Count 9.8 K/mm3 (4.8-10.8)
[2023-12-06 11:55] LABS: Alanine Aminotransferase 82 U/L (12-78); Alkaline Phosphatase 97 U/L (38-126); Anion Gap 4.3 mEq/L (5-15); Aspartate Amino Transferase 77 U/L (14-36); Bilirubin,Total 0.5 mg/dl (0.2-1.3); Blood Urea Nitrogen 6 mg/dl (7-17); Carbon Dioxide 33 mmol/L (22.0-30.0); Creatinine Clearance Estimated 166 mL/min (50-200); Estimated Glomerular Filt Rate 107 ml/min (>60); GFR (African American) 130 ML/MIN (>60); Globulin 4.3 g/dL (1.3-3.2); Lipase 108 U/L (23-300); Total Protein,Serum 8.5 g/dl (6.3-8.2)
[2023-12-06 11:56] LABS: Calcium 9.9 mg/dl (8.4-10.2); Glucose 112 mg/dl (74-100)
[2023-12-06 12:07] LABS: Troponin I < 0.01 ng/ml (0.00-0.034)
--- NOTE | 2023-12-06 12:15 | CT_ITS ---
PROCEDURE INFORMATION: Exam: CT Abdomen And Pelvis With Contrast Exam date and time: 12/06/2023 12:39 PM Age: 48 years old Clinical indication: Abdominal pain; Additional info: Ruq pain to back, stones without cholecystitis US TECHNIQUE: Imaging protocol: Computed tomography of the abdomen and pelvis with contrast. Radiation optimization: All CT scans at this facility use at least one of these dose optimization techniques: automated exposure control; mA and/or kV adjustment per patient size (includes targeted exams where dose is matched to clinical indication); or iterative reconstruction. Contrast material: ISOVUE; Contrast volume: 75 ml; Contrast route: IV; COMPARISON: No relevant prior studies available. FINDINGS: Lungs: Subsegmental atelectasis in the right lower lobe. Diaphragm: Small hiatal hernia. Liver: Fatty infiltration of the liver. Gallbladder and biliary ducts: Normal. No calcified stones. No ductal dilation. Pancreas: Normal. No ductal dilation. Spleen: Normal. No splenomegaly. Adrenal glands: Right adrenal nodule measures 1.7 x 1.2 cm in left adrenal nodule measures 1.2 x 2.2 cm. Further characterization not possible on current examination. Kidneys and ureters: Normal. No hydronephrosis. Stomach and bowel: Unremarkable. No obstruction. No mucosal thickening. Appendix: No evidence of appendicitis. Intraperitoneal space: Unremarkable. No free air. No significant fluid collection. Vasculature: Unremarkable. No abdominal aortic aneurysm. Lymph nodes: Unremarkable. No enlarged lymph nodes. Urinary bladder: Unremarkable as visualized. Reproductive: Unremarkable as visualized. Bones/joints: Unremarkable. No acute fracture. Soft tissues: Unremarkable. IMPRESSION: 1. Adrenal nodules bilaterally as detailed above. Additional workup with dedicated adrenal CT or MRI recommended. 2. Small hiatal hernia.
[2023-12-06 12:16] LABS: HCG,Quantitative < 2 mIU/ml (0-5.42)
[2023-12-06 12:28] LABS: HIV (1&2) Antibody Rapid NONREACTIVE (NONREACTIVE)
[2023-12-06 12:36] LABS: Microscopic, Urine URINE MICROSCOPIC (MICROSCOPIC)
[2023-12-06 12:38] LABS: Appearance,Urine CLOUDY (Clear); Blood, Urine 3+ (Negative); Color,Urine YELLOW (Yellow); Glucose,Urine (UA) Negative (Negative); Ketones,Urine Negative (Negative); Leukocyte Esterase,Urine Negative (Negative); Nitrate,Urine Negative (Negative); PH,Urine 6.5 (5.0-8.5); Protein,Urine Negative (Negative); Specific Gravity, Urine 1.025 (1.005-1.030)
[2023-12-06] MEDS: SODIUM CHLORIDE 0.9% 10ML SYR (RAD ONLY) 10 ML IV (12:38)
[2023-12-06] MEDS: IOPAMIDOL-370 (76%);100ML BOTTLE 75 ML IV (12:38)
--- NOTE | 2023-12-06 12:48 | PC.NURSE ---
DR MURPHY AT BEDSIDE TO REEVALUATE PT
[2023-12-06 12:49] LABS: Bacteria,Urine Trace /lpf; Bilirubin,Urine 1+ (Negative); RBC,Urine 20-50 #/hpf (0-3)
--- NOTE | 2023-12-06 13:54 | PC.NURSE ---
DR MURPHY AT BEDSIDE TO UPDATE PT AND FAMILY
== END 2023-12-06 14:00 | disposition home or self-care (01) ==
PROVIDERS: Emergency Provider Emergency Medicine; PCP Nurse Practitioner Family
DX: R10.11 Right upper quadrant pain (principal); K80.20 Calculus of gallbladder without cholecystitis without obstruction; M54.6 Pain in thoracic spine
CPT/HCPCS: 74177; 80053; 81001; 83690; 84484; 84702; 85025; 87389; 93005; 96374; 96375; 99285; J0131; J1885; Q9967

== ENCOUNTER 2023-12-15 08:37 | Outpatient (CLI) | payer BC, SELFPAY ==
--- NOTE | 2023-12-15 08:38 | US_ITS ---
FINAL REPORT CLINICAL HISTORY: Right upper quad pain COMPARISON: None FINDINGS: Sonographic images of the right upper quadrant were obtained. The pancreas is partially obscured. There is diffuse increased echogenicity in the liver, consistent with fatty infiltration. Multiple gallstones are noted in the gallbladder. There is no evidence of biliary ductal dilatation.The common duct measures 4mm. Limited images of the right kidney are unremarkable. IMPRESSION: Multiple gallstones are noted in the gallbladder without evidence of biliary ductal dilatation. Fatty infiltration of the liver. Reviewed, Interpreted and Dictated by Agustin Man III, MD Transcribed by Gladys Chan Authenticated and [facility]
[2023-12-15 10:11] LABS: Alanine Aminotransferase 83 U/L (12-78); Albumin Level 4.4 g/dl (3.5-5.0); Alkaline Phosphatase 69 U/L (38-126); Aspartate Amino Transferase 94 U/L (14-36); Bilirubin,Direct 0.8 mg/dl (0.0-0.4); Bilirubin,Indirect 0.4 mg/dL (0.0-0.9); Bilirubin,Total 1.2 mg/dl (0.2-1.3); Bilirubin,Unconjugated 0.4 mg/dL (0.0-1.1); Total Protein,Serum 8.6 g/dl (6.3-8.2)
== END 2023-12-15 23:59 | disposition home or self-care (01) ==
LOC: RAD 08:38
PROVIDERS: PCP Nurse Practitioner Family; Visit Provider Surgery
DX: K80.20 Calculus of gallbladder without cholecystitis without obstruction (principal); R79.89 Other specified abnormal findings of blood chemistry; R10.10 Upper abdominal pain, unspecified
CPT/HCPCS: 36415; 76705; 80076

== ENCOUNTER 2023-12-16 13:36 | Outpatient (CLI) | payer BC, SELFPAY | END 2023-12-16 23:59 | disposition home or self-care (01) | LOC: PREOP 13:37 | PROVIDERS: PCP Nurse Practitioner Family; Visit Provider Surgery | DX: R69 Illness, unspecified (principal) ==

== ENCOUNTER 2023-12-18 09:43 | Day surgery (SDC) | payer BC, SELFPAY ==
[2023-12-16 12:01] VITALS: BMI 39.0
[2023-12-16 12:37] VITALS: BMI 33.3
[2023-12-18] VITALS (11 sets, daily range): BP systolic 140–179; BP diastolic 75–97; PULSE 65–73; RESP 17–24; TEMP 36.1–36.4; O2SAT 94–98
--- NOTE | 2023-12-18 09:58 | EXP.OP.NOTE ---
Date of procedure: 12/18/23 Pre-op Diagnosis:: Symptomatic cholelithiasis Post-op Diagnosis:: Chronic calculus cholecystitis Procedure performed:: Laparoscopic cholecystectomy Surgeon:: Marvin Mcnair MD Anesthesia: GETMarianela Estimated blood loss (mL): 15 Operative findings:: Fairly severe pericholecystic fat stranding Infundibular thickening Operative note:: After informed consent was obtained, the patient was taken to the operating room and placed in the supine position. General anesthesia was induced and the abdomen was prepped and draped in a sterile fashion. After infiltration with local anesthetic an infraumbilical incision was made. A Veress needle was placed in position. The abdomen was insufflated. A 5 mm optical trocar was placed in position. Under direct visualization, a 12 mm trocar was placed in the subxiphoid position and 2 additional 5 mm trocars were placed in the right upper quadrant. The gallbladder was elevated up and over the liver margin. The tissue around the cystic duct was carefully dissected. 3 clips were placed proximally and the duct was transected with harmonic ramya. Harmonic ramya were then utilized to dissect the gallbladder away from the liver margin with careful attention to the control of the cystic artery. The gallbladder was placed in a retrieval bag and removed through the subxiphoid trocar site. The right upper quadrant was thoroughly irrigated. No active bleeding or bile leak was noted. Fascia at the subxiphoid trocar site was reapproximated utilizing the NeoClose device. The remaining trocars were removed. All wounds were irrigated and skin was closed with 4-0 Monocryl in a subcuticular fashion. Steri-Strips were applied. The patient's anesthetic agents were reversed and extubation was completed prior to transfer to recovery in stable condition. Condition: stable Disposition: PACU Specimens:: Gallbladder and contents Complications:: No immediate
[2023-12-18] MEDS: LACTATED RINGERS 1000ML 1,000 ML 25 ML IV (10:02)
--- NOTE | 2023-12-18 10:02 | P.PNANES_ITS ---
[facility] Disclaimer: The information contained in this section may have been updated after the patient was seen, as this information can be updated by other users. Medical History (Updated 12/18/23 @ 10:05 by Cholo Castillo RN) GERD (gastroesophageal reflux disease) Surgical History H/O section Family History Other Cancer Diabetes Heart attack Hypertension Social History Smoking Status: Current every day smoker tobacco type: cigarettes packs per day: 2 alcohol intake: current substance use type: former substance user current occupational status: disabled Travel in the last 8 weeks: None household members: spouse, family and children housing: house [facility] Anesthesia Checklist Patient Identification Patient Identification: Arm Band and Verbal (Name & ) Structural Data Planned Operative Procedure/s: Lap. cholecystectomy NPO Status Verified Time NPO: 00:00 Chart Verification Results Verified: HCG Airway Assessment Mallampati Score:: Class II C-Spine Mobility Assessed: Yes TMJ Mobility Assessed: Yes Dentition: Edentulous Neurological Assessment Level of Consciousness: Awake Hx Seizures: No Numbness or tingling in extremities: No Anesthesia Plan Anesthesia Risk discussed: Yes Anesthesia Plan: Verified ASA Class: II Anesthesia Type: General
[2023-12-18 10:04] LABS: Urine Pregnancy, HCG Qual. Negative (Negative)
[2023-12-18] MEDS: CEFAZOLIN SODIUM 2 GM in 0.9 % SODIUM CHLORIDE 100 ML IV (10:50)
[2023-12-18] MEDS: LIDOCAINE 1% 20ML MDV 20 ML (11:04)
--- NOTE | 2023-12-18 11:57 | EXP.ANES.I ---
[facility] Anesthesia Record Part I Anesthesia Record I Intake, IV Amount: 600 Hydration: Adequate Estimated blood loss (mL): 15 Urine output (mL): 0 Blood Products used (#): none Blood Pressure: 146/94 SaO2: 94 Pulse Rate: 70 Airway Patency: Patent Respiratory Rate: 24 Temperature: 97 F Patient is:: Awake and Stable Stable to PACU at:: 11:52
--- NOTE | 2023-12-18 13:15 | EXP.ANES.II ---
[facility] Anesthesia Record Part II Anesthesia Record Part II Discharge Time: 12:22 Destination: Surgical Day Care (OP Surgery) PACU nurse assessment reviewed?: Yes Patient Condition:: Good Anesthesia Complications:: None Swallowing reflex intact?: Yes Airway Patency: Patent Cyanosis?: No Blood Pressure: 140/75 SaO2: 97 Respiratory Rate: 17 Pulse Rate: 67 Temperature: 97.6 F Mental Status: Alert & Oriented Pain level:: 0 Nausea and/or vomitting:: None Intake, IV Amount: 0 Hydration: Adequate
== END 2023-12-18 12:53 | disposition home or self-care (01) ==
PROVIDERS: PCP Nurse Practitioner Family; Visit Provider Surgery
PROC: 0FT44ZZ Resection of Gallbladder, Percutaneous Endoscopic Approach (ICD-10-PCS; CPT 47562; principal; 2023-12-18 11:15)
DX: K80.10 Calculus of gallbladder with chronic cholecystitis without obstruction (principal)
CPT/HCPCS: 47562; 81025; 96374; J0690; J1100; J2250; J2405; J3010; J7120